=== PATIENT | female | born 1985 | race African-American/Black ===

== ENCOUNTER 2017-10-01 16:02 | Emergency (ER) | payer MEDICAID ==
[~2017-10-01] VITALS: Ht 160 cm; Wt 83.0 kg
[~2017-10-01 16:02] MED LIST: [UNRECOGNIZED DRUG - REMARK]
[2017-10-01 16:24] VITALS: BP 122/89
[2017-10-01 17:53] LABS: CLARITY URINE CLOUDY (CLEAR); COLOR URINE YELLOW (YELLOW); KETONES URINE TRACE (NEGATIVE); LEUKOCYTE ESTERASE URINE TRACE (NEGATIVE); NITRITE URINE NEGATIVE (NEGATIVE); OCCULT BLOOD URINE NEGATIVE (NEGATIVE); PH URINE 5.5 (4.5-8.0); PROTEIN URINE NEGATIVE (NEGATIVE)
[2017-10-01 18:41] LABS: BASOPHILS % 1.1 % (0.0-2.0); EOSINOPHILS % 0.8 % (0.0-5.0); HEMATOCRIT. 38.1 % (36.0-48.0); HEMOGLOBIN. 12.8 g/dL (12.0-16.0); LYMPHOCYTES % 45.5 % (20.0-50.0); MEAN CORPUSCULAR HEMOGLOBIN 28.6 pg (28.0-32.0); MEAN CORPUSCULAR VOLUME 84.8 fL (81.0-99.0); MEAN PLATELET VOLUME 6.5 fl (7.4-10.4); NEUTROPHILS % 46.6 % (40.0-76.0); PLATELET 454 x1000/uL (130-400); RED BLOOD CELL COUNT 4.49 mill/uL (4.2-5.4); RED CELL DISTRIBUTION WIDTH 14.3 % (11.6-14.6)
[2017-10-01 18:47] LABS: INR 1.1; PROTHROMBIN TIME 11.1 sec (9.4-11.6)
[2017-10-01 18:50] LABS: CHLORIDE 107 mEq/L (98-107)
== END 2017-10-01 23:00 | disposition left against medical advice (07) ==
LOC: ER 16:02
DX: R11.2 Nausea with vomiting, unspecified (principal); R10.9 Unspecified abdominal pain; J45.909 Unspecified asthma, uncomplicated; Z88.0 Allergy status to penicillin
CPT/HCPCS: 36415; 80053; 81003; 81025; 83690; 85025; 85610; 99284

== ENCOUNTER 2018-07-06 18:22 | Emergency (ER) | payer MEDICAID ==
[~2018-07-06] VITALS: Ht 162.6 cm; Wt 79.0 kg
[2018-07-06 18:38] VITALS: BP 106/68
[2018-07-06] MEDS ORDERED: IBUPROFEN 600MG TABLET PO ONE (19:15)
[2018-07-06] MEDS ORDERED: BACITRACIN ZINC OINT UDPKT TOP ONE (20:00)
== END 2018-07-06 20:08 | disposition left against medical advice (07) ==
LOC: ER 18:22
DX: S60.511A Abrasion of right hand, initial encounter (principal); J45.909 Unspecified asthma, uncomplicated; Z88.0 Allergy status to penicillin; V00.831A Fall from motorized mobility scooter, initial encounter; Y93.89 Activity, other specified; Y92.488 Other paved roadways as the place of occurrence of the external cause
CPT/HCPCS: 73130; 99283

== ENCOUNTER 2019-02-06 19:20 | Emergency (ER) | payer MEDICAID ==
[~2019-02-06] VITALS: Ht 165.1 cm; Wt 77.8 kg
[2019-02-06 19:52] VITALS: BP 120/86
== END 2019-02-07 00:17 | disposition left against medical advice (07) ==
LOC: ER 19:20
DX: S69.90XA Unspecified injury of unspecified wrist, hand and finger(s), initial encounter (principal); M54.2 Cervicalgia; Z53.21 Procedure and treatment not carried out due to patient leaving prior to being seen by health care provider; X58.XXXA Exposure to other specified factors, initial encounter; Y93.89 Activity, other specified; Y92.89 Other specified places as the place of occurrence of the external cause; Y99.8 Other external cause status

== ENCOUNTER 2022-11-26 10:46 | Emergency (ER) | payer MEDICAID ==
[~2022-11-26] VITALS: Ht 162.6 cm; Wt 86.4 kg
[2022-11-26 10:50] VITALS: BP 117/81
[2022-11-26 11:17] LABS: BASOPHILS % 0.9 % (0.0-2.0); EOSINOPHILS % 0.5 % (0.0-5.0); HEMATOCRIT. 35.5 % (36.0-48.0); HEMOGLOBIN. 11.9 g/dL (12.0-16.0); LYMPHOCYTES % 23.9 % (20.0-50.0); MEAN CORPUSCULAR HEMOGLOBIN 29.7 pg (28.0-32.0); MEAN CORPUSCULAR VOLUME 88.8 fL (81.0-99.0); MEAN PLATELET VOLUME 6.5 fl (7.4-10.4); MONOCYTES % 4.9 % (2.0-8.0); NEUTROPHILS % 69.8 % (40.0-76.0); PLATELET 410 x1000/uL (130-400); RED CELL DISTRIBUTION WIDTH 15.6 % (11.6-14.6)
[2022-11-26 11:33] LABS: CHLORIDE 106 mEq/L (98-107)
[2022-11-26 11:54] LABS: HCG SCREEN POSITIVE
[2022-11-26 13:58] LABS: CLARITY URINE CLOUDY (CLEAR); COLOR URINE YELLOW (YELLOW); KETONES URINE 4+ (NEGATIVE); LEUKOCYTE ESTERASE URINE 1+ (NEGATIVE); NITRITE URINE NEGATIVE (NEGATIVE); OCCULT BLOOD URINE NEGATIVE (NEGATIVE); PROTEIN URINE TRACE (NEGATIVE); SPECIFIC GRAVITY URINE 1.028 (1.005-1.030)
[2022-11-26] MEDS ORDERED: CEPH500C2 MT ×2 (15:41)
[2022-11-26] MEDS ORDERED: FOSF3PAC PO (15:44)
== END 2022-11-26 16:36 | disposition home or self-care (01) ==
LOC: ER 10:46
DX: O23.41 Unspecified infection of urinary tract in pregnancy, first trimester (principal); O99.511 Diseases of the respiratory system complicating pregnancy, first trimester; O26.891 Other specified pregnancy related conditions, first trimester; R10.30 Lower abdominal pain, unspecified; J45.909 Unspecified asthma, uncomplicated; Z3A.13 13 weeks gestation of pregnancy; Z88.0 Allergy status to penicillin
CPT/HCPCS: 36415; 76805; 80053; 81003; 81025; 84703; 85025; 99284